=== PATIENT | male | born 2000 | race Hispanic/Latino ===

== ENCOUNTER 2021-04-15 08:27 | Day surgery (SDC) | payer BC, OTHER ==
[2021-04-15] MEDS ORDERED: Ringers Lactate 1,000 ML IV ONE (08:41)
[2021-04-15] MEDS ORDERED: MIDAZOLAM HCL 2 MG/2 ML INJ ONE (09:26)
[2021-04-15] MEDS ORDERED: propofoL 200 MG/20 ML VIAL IV ONE (09:26)
[2021-04-15] MEDS ORDERED: FENTANYL CITR 100 MCG/2 ML ONE (09:26)
[2021-04-15] MEDS ORDERED: LIDOCAINE 2% MPF 5 ML VIAL ONE (09:27)
[2021-04-15] MEDS ORDERED: ROCURONIUM 50 MG/5 ML VIAL IV ONE (09:27)
[2021-04-15] MEDS ORDERED: dexAMETHasone 10 MG/ML VIAL ONE (09:27)
[2021-04-15] MEDS ORDERED: ACETAMINOPHEN 500 MG TAB ONE (09:43)
[2021-04-15] MEDS ORDERED: CELECOXIB 100 MG CAPSULE ONE (09:43)
[2021-04-15] MEDS ORDERED: BUPIVACAINE 0.25% PF 10 ML VIAL ONE (09:53)
[2021-04-15] MEDS ORDERED: BUPIVACAINE 0.25% PF 10 ML VIAL IJ ONE (10:12)
[2021-04-15] MEDS ORDERED: GLYCOPYRROLATE 0.2 MG/ML SYR ONE (10:23)
[2021-04-15] MEDS ORDERED: NEOSTIGMINE 1 MG/ML -5 ML ONE (10:25)
[2021-04-15] MEDS ORDERED: KETOROLAC 30 MG/ML INJ ONE (10:33)
[2021-04-15] MEDS: HYDROMORPHONE HCL 1 MG/ML INJ ONE ×2 (10:56→11:03)
[2021-04-15 11:14] VITALS: O2SAT 100
[2021-04-15 11:19] VITALS: BP 118/84; TEMP 97.6
--- NOTE | 2021-04-16 19:27 | OP ---
Date of Procedure: 04/15/2021 Surgeon: RANDA CERDA Preoperative Diagnoses: 1.Chronic tonsillitis. 2.Tonsilliths. Postoperative Diagnoses: 1.Chronic tonsillitis. 2.Tonsilliths. Procedure: Tonsillectomy. Anesthesia: General endotracheal anesthesia was administered. I also infiltrated approximately 10 m L of 0.25% Marcaine without epinephrine into bilateral tonsillar fossae, anterior and posterior tonsi llar pillars, and soft palate. Estimated Blood Loss: Scant, less than 2 mL. Findings: Bilateral cryptic tonsils with evidence of tonsilliths and exudate; tonsillar hypertrophy 2+/4. Complications: None. Disposition: Stable. The patient tolerated procedure well. Indication For Procedure: The patient is a pleasant 20-year-old male who presented to my outpatient clinic complaining of chronic sore throat and odynophagia secondary to frequently inflamed bilateral tonsils with evidence of recurrent tonsilliths and tonsillitis. His condition has been refractory to outpatient oral antibiotic therapy as well as frequent gargling to remove the stones. These are ind ications to bring the patient to proceed for the above-mentioned procedure. He understood, all quest ions were answered. Risks versus benefits, complications were explained in detail and a consent form was signed which is placed in the chart. Description Of Procedure: The [facility], placed on the operating table supine, sedated and intubated in normal fashion. The table was rotated 90 degrees and a shoulder roll was placed. Head and eyes w ere covered with sterile blue towels and moist Ray-Josias was placed over the upper lip for protection. The McIvor retractor was introduced into the right oral commissure and directed along the endotrachea l tube and suspended from the Al stand. The tonsils were removed by retracting the superior poles midline with straight Allis clamps and dissecting through the mucosa down to the peritonsillar fascia l plane with a needlepoint electrocautery tip, which was placed on the twentieth setting of coagulati on. Dissection was started superiorly and then we worked to the inferior pole whereby the inferior p ole was amputated with suction Bovie cautery. Saline irrigation was introduced to the oral cavity an d removed with suction Bovie. Once hemostasis was achieved, I infiltrated approximately 10 mL of 0.2 5% Marcaine without epinephrine into bilateral anterior and posterior tonsillar pillars, the tonsilla r fossa as well as the soft palate. I then gently suctioned the adenoid cavity with suction Bovie christiane d then lifted the soft palate and uvula anteriorly to inspect the adenoid cavity and there was no ethan dence of adenoid tissue. A flexible orogastric tube was inserted into the esophagus and stomach and all fluid contents were removed. The patient was then de-suspended from the [place] stand. The McIvor retractor was removed. The patien t's jaw was checked and found to be in proper alignment. Head and eyes were uncovered and the should er roll was removed. He was then transferred back to Department of Anesthesia in stable condition wh ere he was subsequently awakened, extubated, and transferred to postoperative care unit. He will be discharged home on analgesic medication and will follow up in 1-2 weeks or sooner if needed. ALLISON/ADDI Voice ID: [id number] Report ID: [id number]
== END 2021-04-15 12:12 | disposition home or self-care (01) ==
LOC: OR 08:27
PROVIDERS: ATTEND Otolaryngology Facial Plastic Surgery
PROC: 0CTPXZZ Resection of Tonsils, External Approach (ICD-10-PCS; principal; 2021-04-15 09:45)
DX: J35.01 Chronic tonsillitis (principal); J35.8 Other chronic diseases of tonsils and adenoids; Z20.822 Contact with and (suspected) exposure to COVID-19
CPT/HCPCS: 88304; 42826; U0003; J2704; J2250; J3010; J1100; J1170; J2710; J7120